=== PATIENT | female | born 1970 | race Caucasian/White ===

== ENCOUNTER → 2016-12-20 | Outpatient (CLI) | payer OTHER ==
[~2016-12-20] MED LIST: CLR10 PO; INSU70IN2 SC; LISI-461 PO; MELO15TA4 PO; METF1TAB53 PO; NRN/600 PO; OMEP40CA PO; OXYB5TAB74 PO; PROM25TA9 PO
--- NOTE | 2016-12-21 06:01 | PAP/PSG TECHNICIAN REPORT ---
[facility] Manager Purchasing Polysomnogram Report Study name: None Report date: 12/21/2016 Study date: 12/20/2016 Referring Physician: Branden Copeland M.D. Name: MIKALA OH Interpreting Physician: Sariah Copeland M.D. Date of : 1970 Manager Purchasing: PATTI Guidry. Sex: Female Age: 46 StudyType: PSG Weight: 311 lbs Height: 46 years, Height 5' 4" Neck Circum: 18 inches BMI: 53.38 Medications: Meloxicam, Tramadol, Insulin, Lisinopril, Omeprazole, Loratadine,Metformin, Gabapentin Patient History 46 yr. old female here for a possible split night sleep study with [id number]. Patient is having gastric bypass surgery. 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 Patients [place] sleepiness scale score is 4/24 Parameters Monitored NPSG: E1-M2, E2-M1, Fp1-M2, Fp2-M1, F3-M2, F4-M2, F4-M1, C3-M2, C4-M2, C4-M1, O1-M2, O2-M2, O2-M1, T3-M2, T4-M1, P3-M2, P4-M1, CHIN1, CHIN2, HR, EKG, Legs, PFLOW, SNOR, FLOW, CFLOW, Tidal Volume, THOR, ABDO, SpO2, PLTH, CPRESS, ETCO2 Wave, ETCO2, pH Sleep Architecture Sleep Stages Time at Lights Off 10:39:14 PM STAGES Time (min.) TST (%) Time at Lights On 5:45:14 AM Wake 64.0 -- Total Recording Time (TRT) 426.00 min. N1 30.0 8 Total Sleep Period (TSP) 400.0 min. N2 217.5 60 Total Sleep Time (TST) 362.0min. N3 37.0 10 Awake Time 64.0 min. REM 77.5 21 Wake after Sleep Onset 38.0 min. Sleep Efficiency (SE) 85 % Sleep Onset Latency (MILTON) 26.0 min. Number of Stage 1 Shifts None Awakenings 13 Stage Changes 75 Number of REM periods 4 REM 77.5 21 REM Latency 60.5 min. NREM 284.5 79 Body Position Analysis Supine Right Left Side Prone Vertical Total Sleep Time (min.) 63.5 231.3 0.0 231.29 99.1 0.0 Total Sleep Time (%) 10% 64% 0% 64 26% N/A% Total Sleep Time REM (min.) 7.5 47.0 0.0 None 23.0 0.0 Total Sleep Time NREM (min.) 28.1 184.3 0.0 None 72.1 0.0 Intermittent Wake (min.) 27.9 32.1 0.0 None 4.0 0.0 Total Sleep Period (%) 10% None None None None None Arousals Myoclonus (PLM) * Events Count Index Events Count Index Spontaneous 14 2 Events Awake (PLMW) 51 47.8 Respiratory 0 0.0 Events Asleep w/ Arousal (PLMA) 4 0.7 PLM 4 1 Events Asleep w/o Arousal (PLMS) 110 18.2 Snoring 11 2 Total Asleep 114 18.9 Total 29 5 Total 165 23 Respiratory Analysis * CA OA MA CH H RERA Total Count 0 0 0 0 25 0 25 Index 0.0 0.0 0.0 0 4.1 0 4.1 Mean Duration 0.0 0.0 0.0 0.00 27.4 0.0 27.4 Longest Duration 0.0 0.0 0.0 0.00 0.0 0.0 40.3 Respiratory Event Summary Total Supine ~Supine Right Left Prone REM NREM Apneas Count 0 0 0 0 N/A 0 0 0 Index 0.0 0 0 0.0 N/A 0 0 0 Hypopneas (4% Desat) Count 25 7 18 15 N/A 3 14 11 Index 4.1 11.8 3 3.9 N/A 1.9 10.8 2.3 Apneas & All Hypopneas Count 25 7 18 15 N/A 3 14 11 Index 4.1 12 3 4 N/A 2 10.8 2.3 Respiratory Events (Account Support Analyst+All Hyp+RERA) Count 25 7 18 15 N/A 3 14 11 Index 4.1 12 3 3.9 N/A 1.9 10.8 2.3 Respiratory Related Arousal Count 0 7 0 0 N/A 0 0 0 Index 0.0 0 0 0 N/A 0 0 0 Snoring Analysis Supine Right Left Prone REM NREM Total Snore duration 42.5 min Snores count 85 1,539 N/A 30 150 1,504 1,654 Snore mean duration 1.5 Sec Snores index 143 399 N/A 19 116.1 317.2 274.1 TST with snoring (%) 11.7% SpO2 Analysis Total REM NREM Awake <50% 0.0 min. 0.0 min. 0.0 min. 0.0 min. 51 - 60% 0.0 min. 0.0 min. 0.0 min. 0.0 min. 61 - 70% 0.0 min. 0.0 min. 0.0 min. 0.0 min. 71 - 80% 0.0 min. 0.0 min. 0.0 min. 0.0 min. 81 - 90% 48.8 min. 18.8 min. 28.0 min. 2.1 min. 91 - 100% 370.3 min. 58.7 min. 256.5 min. 55.0 min. Average 92 92 92 95 Minimum SpO2 83 83 86 88 Desaturation Event Index 6.9 14.7 4.2 9.4 # Desat. Events below 89% 19 10 8 1 Time(%) with Saturation below 89% 0.9 0.6 0.3 0.0 Time(min.) with Saturation below 89% 3.8 2.4 1.3 0.1 Heart Rate Analysis End Tidal CO2 Analysis Min (bpm) Max (bpm) Average (bpm) TSP (mins) % of TSP Awake 80 127 96 Above 55 mmHg 0.0 0.0 NREM 77 110 90 50-55 mmHg 0.0 0.0 REM 77 109 92 45-50 mmHg 52.0 14.4 Overall 77 110 90 40-45 mmHg 161.5 44.6 35-40 mmHg 12.6 3.5 30-35 mmHg 0.9 0.3 Average ETCO2 0.0 Supplemental O2 Values Minimum O2 level: None Value Start Time End Time Manager Purchasing Comments MS. Oh slept in the right, left, supine and prone positions. No cardiac arrhythmia or PLMs noted. No bruxism noted. Snoring was noted and scored as a 2 on a scale of 0 through 5. (0=no snoring, 5=snoring loud enough to be heard through a closed door or down the frias way) MS. Oh awoke to use the restroom once during the night. MS. Oh stated, that was a normal night. The final report will be interpreted and signed by a sleep physician. The completed physician report will then be placed in the patient medical record. Therapy (cm H2O) 0 TIB (min.) 426.0 TST (min.) 362.0 Sleep Onset (min.) 26.0 REM Onset From Sleep (min.) 60.5 Sleep Efficiency % 85 Wakefulness (%) 15 Wakefulness (min.) 64.0 NREM 1 (%) 8 NREM 1 (min.) 30.0 NREM 2 (%) 60 NREM 2 (min.) 217.5 NREM 3 (%) 10 NREM 3 (min.) 37.0 REM (%) 21 REM (min.) 77.5 # Arousals 29 Arousal Index 5 # Snore 1,654 Snore Index 274.1 AHI 4.1 AHI Supine 12 AHI Non-Supine 3 NREM AHI 2.3 REM AHI 10.8 RDI 4.1 # Obstructive Apnea 0 # Central Apnea 0 # Mixed Apnea 0 # Hypopneas 25 RERAs 0 Total Respiratory Events 27 Time Below SpO2 89% (min.) 3.7 Mean NREM SpO2 (%) 92 Mean REM SpO2 (%) 92 Mean Sleep SpO2 (%) 92 Min NREM SpO2 (%) 86 Min REM SpO2 (%) 83 Position Supine (min.) 63.5 Position Non-supine (min.) 326.4 LM Index Sleep 18.9 LM Index NREM 15.4 LM Index REM 31.7 Mean Heart Rate (bpm) 90 Min Heart Rate (bpm) 77
--- NOTE | 2016-12-28 11:03 | POLYSOMNOGRAPH REPORT ---
REFERRING PERSON: Dr. Gasper Copeland. FLOOR CASHIER: Mayuri Foreman. Ms. Oh is a 46-year-old female sent for a possible split night sleep study. She is following with a GI nutrition clinic and is likely going to have gastric bypass surgery. 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 She is sent to the lab to rule out sleep disordered breathing. Her [place] sleepiness scale score on the evening of this study is 4. BMI is 53.38. Following the technical and digital specifications of the [place] [employer] (AASM) a standard diagnostic polysomnogram was performed monitoring EEG, EOG, EMG (chin and leg deviations), oxygen saturation, body position, digital video, respiratory effort and airflow. The sleep Stage and event scoring was based on the AASM Manual for the Scoring of Sleep and Associated Events 2007 edition. Apneas are defined as a drop in the peak thermal sensor excursion by >90% of baseline for at least 10 seconds. Hypopneas were scored using the 4% oxygen desaturation rule (4A-[employer]) and a decrease in the nasal pressure excursions by >30% of baseline for at least 10 seconds. Respiratory effort-related arousal (RERA's) is defined as a sequence of breaths lasting at least 10 seconds characterized by increasing respiratory effort or flattening of the nasal pressure waveform leading to an arousal from sleep when the sequence of breaths does not meet criteria for an apnea or hypopnea. Apnea Hypopnea index (AHI) is defined as the number of apneas and hypopneas occurring in an hour of sleep. Respiratory disturbance index (RDI) is defined as the number of apneas, hypopneas, and RERA's occurring in an hour of sleep. Ms. Oh's total sleep period time was 400 minutes. Total sleep time was 362 minutes. Sleep efficiency was 85%. Latency to sleep onset was 26 minutes with wake after sleep onset of 38 minutes. Total non-REM sleep time was 284.5 minutes. She spent 8% of that time in N1 sleep, 60% in N2 sleep and 10% in N3 sleep. REM latency was 60.5 minutes. Total REM sleep time was 77.5 minutes or 21% of total sleep time. There were 29 cortical arousals from sleep. Eleven of these arousals were due to snoring, 4 due to periodic limb movements of sleep and 14 were spontaneous. There were no central obstructive or mixed apneas on this test. There were 25 hypopneas and no RERA. Apnea-hypopnea index was normal at 4.1. There were 1654 snoring events recorded. Total sleep time with snoring was 11.7%. Mean saturation during sleep was 92% with desaturations to 83%. Saturations were less than 89% for 3.8 minutes of sleep time. There was no cardiac ectopy noted on this study. Heart rates ranged from a low of 77 beats per minute to a high of 110 beats per minute during sleep. End-tidal CO2 was recorded on this test. However, this data was incomplete. IMPRESSION AND PLAN: A 46-year-old female without evidence of sleep disordered breathing, nocturnal hypoxemia, bruxism, parasomnia or clinically significant periodic limb movements of sleep on this test.
== END | disposition home or self-care (01) ==
LOC: C.NEUR 21:00
PROVIDERS: ATTEND Family Medicine
DX: R06.83 Snoring (principal); E66.01 Morbid (severe) obesity due to excess calories; E66.2 Morbid (severe) obesity with alveolar hypoventilation; G47.30 Sleep apnea, unspecified; G47.36 Sleep related hypoventilation in conditions classified elsewhere; G47.63 Sleep related bruxism; G47.50 Parasomnia, unspecified

== ENCOUNTER → 2016-12-23 | Outpatient (CLI) | payer OTHER ==
--- NOTE | 2016-12-23 12:47 | MAMMOGRAPHY REPORT ---
UNILATERAL LEFT DIGITAL DIAGNOSTIC MAMMOGRAM TOMOSYNTHESIS WITH CAD AND TARGETED LEFT ULTRASOUND: 12/23/2016 CLINICAL HISTORY: 46-year-old woman presents with tenderness in the inferior left breast. No defini te palpable mass although she reports her doctor felt a lump on physical exam in that area. No fami ly history of breast cancer. TECHNIQUE: Left breast tomosynthesis in addition to standard 2D mammography was performed. Current mic shoemaker was also evaluated with a Computer Aided Detection (CAD) system. COMPARISON: Comparison is made to exams dated: 08/27/2016 mammogram and 12/23/2016 ultrasound - [facility]. BREAST COMPOSITION: There are scattered areas of fibroglandular density in the left breast. FINDINGS: A triangular skin palpable marker overlies the 6:00 posterior left breast, denoting the te nderness which was pointed out by the patient. There are a few benign rim calcifications in the ant erior left breast. No new suspicious mass, architectural distortion or cluster of microcalcificatio ns is seen. Targeted ultrasound was performed along the inferior left breast from the 5:00 to 7:00 axes, in the area of tenderness pointed out by the patient. Normal fibroglandular tissue is seen without a suspi cious solid or cystic mass. IMPRESSION: ACR BI-RADS CATEGORY 2: BENIGN, TARGETED ULTRASOUND ACR BI-RADS CATEGORY 2: BENIGN There is no suspicious mammographic or sonographic abnormality in the area of tenderness pointed out by the patient, also an area of lump identified by the patient's physician. Overall, there is no m ammographic or targeted sonographic evidence of malignancy. Clinical follow-up is recommended, as b iopsy of a clinically suspicious mass should not be precluded by negative imaging. Otherwise, would recommend return to annual screening mammography schedule. Approximately 10% of breast cancers are not detected with mammography. A negative mammographic repor t should not delay biopsy if a clinically suggestive mass is present. Estelita Mcgill M.D. ay/:12/23/2016 09:33:56 Shuttle Driver: Liat MACHADO(Holly)(Coty), [facility] letter sent: Normal /2 BI-RADS Code: ACR BI-RADS Category 2: Benign Ultrasound BI-RADS: ACR BI-RADS Category 2: Benign
== END | disposition home or self-care (01) ==
LOC: C.MAMM 08:32
PROVIDERS: ATTEND Family Medicine
DX: R92.8 Other abnormal and inconclusive findings on diagnostic imaging of breast (principal)

== ENCOUNTER → 2017-02-17 | Outpatient (CLI) | payer OTHER ==
--- NOTE | 2017-02-17 12:08 | DIAGNOSTIC IMAGING REPORT ---
RIGHT FOOT 3 VIEWS CLINICAL HISTORY: Chronic right foot pain. FINDINGS: 3 weightbearing views of the right foot are compared to study dated 08/11/2016. The skeletal structures are osteopenic. No fracture is seen. Advanced arthritic change is again seen involving the tarsometatarsal articulations. 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 There are large dorsal and plantar calcaneal enthesophytes. An os trigonum and an os navicularis are observed. Cystic degenerative change is present in the cuboid. IMPRESSION: 1. No acute bony abnormality is seen. 2. Pes planus and metatarsus adductus as above with advanced degenerative change at the tarsometatarsal articulations. This is similar in appearance to 08/11/2016 examination. Electronically signed by: Piero Robin M.D. 02/17/2017 12:07 PM Dictated Date/Time: 02/17/2017 12:02 PM
--- NOTE | 2017-02-17 12:13 | DIAGNOSTIC IMAGING REPORT ---
WEIGHTBEARING RADIOGRAPHS OF THE LEFT FOOT CLINICAL HISTORY: Diabetes. Neuropathy. COMPARISON: None FINDINGS: Lateral view demonstrates pes planus deformity. There is no acute fracture or suspicious lesion. There is mild posterior and plantar calcaneal spurring. There is mild arthritis within the left midfoot. No bony destruction is present. There is an old ossicle along the medial malleolus. IMPRESSION: 1. Pes planus deformity. 2. Mild arthritis within the left midfoot. No bony destruction. No acute fracture. Electronically signed by: Prince Lopez M.D. 02/17/2017 12:12 PM Dictated Date/Time: 02/17/2017 12:05 PM
== END | disposition home or self-care (01) ==
LOC: C.RAD 11:08
PROVIDERS: ATTEND Internal Medicine Endocrinology, Diabetes & Metabolism
DX: E11.21 Type 2 diabetes mellitus with diabetic nephropathy (principal); M21.42 Flat foot [pes planus] (acquired), left foot; M21.41 Flat foot [pes planus] (acquired), right foot; M19.071 Primary osteoarthritis, right ankle and foot

== ENCOUNTER → 2017-03-26 | Outpatient (CLI) | payer BC, OTHER ==
[~2017-03-26] MED LIST changes: +DTR/5 PO; -OXYB5TAB74 PO
[2017-03-26 14:53] LABS: ALT/SGPT 18 U/L (12-78); BLOOD UREA NITROGEN 19 mg/dl (7-18); BUN/CREATININE RATIO 22.5 (10-20); CALCIUM 9.2 mg/dl (8.5-10.1); CARBON DIOXIDE 31 mmol/L (21-32); CHLORIDE 104 mmol/L (98-107); CREATININE 0.86 mg/dl (0.60-1.20); GLUCOSE 121 mg/dl (70-99); POTASSIUM 4.3 mmol/L (3.5-5.1); SODIUM 140 mmol/L (136-145)
[2017-03-26 14:57] LABS: CHOLESTEROL 160 mg/dl (0-200); CHOLESTEROL/HDL RATIO 3.7; HDL CHOLESTEROL 43 mg/dl; LDL CHOLESTEROL CALCULATED 88 mg/dl; TRIGLYCERIDES 143 mg/dl (0-150); VERY LOW DENSITY LIPOPROT CALC 29 mg/dl
[2017-03-26 15:04] LABS: ESTIMATED AVERAGE GLUCOSE 180 mg/dl; HA1C FLAG Normal (Normal)
== END | disposition home or self-care (01) ==
LOC: C.LABBC 10:30
PROVIDERS: ATTEND Family Medicine
DX: E11.9 Type 2 diabetes mellitus without complications (principal); E78.00 Pure hypercholesterolemia, unspecified; I10 Essential (primary) hypertension

== ENCOUNTER → 2017-10-20 | Outpatient (CLI) | payer BC ==
[~2017-10-20] MED LIST changes: -PROM25TA9 PO
== END | disposition home or self-care (01) ==
LOC: C.PAPS 08:23
PROVIDERS: ATTEND Family Medicine
DX: Z01.419 Encounter for gynecological examination (general) (routine) without abnormal findings (principal)

== ENCOUNTER → 2017-12-08 | Outpatient (CLI) | payer BC ==
[2017-12-08 13:37] LABS: ALT/SGPT 27 U/L (12-78); BLOOD UREA NITROGEN 17 mg/dl (7-18); CALCIUM 9.2 mg/dl (8.5-10.1); CARBON DIOXIDE 26 mmol/L (21-32); CHOLESTEROL 157 mg/dl (0-200); CREATININE 0.73 mg/dl (0.60-1.20); GLUCOSE 112 mg/dl (70-99); POTASSIUM 4.1 mmol/L (3.5-5.1); SODIUM 138 mmol/L (136-145)
[2017-12-08 13:42] LABS: LDL CHOLESTEROL CALCULATED 91 mg/dl
[2017-12-09 06:13] LABS: HEMOGLOBIN A1C 5.2 % (4.5-5.6)
== END | disposition home or self-care (01) ==
LOC: C.LABBC 09:03
PROVIDERS: ATTEND Family Medicine
DX: E11.9 Type 2 diabetes mellitus without complications (principal); E78.00 Pure hypercholesterolemia, unspecified

== ENCOUNTER → 2018-01-17 | Outpatient (CLI) | payer BC, OTHER ==
[~2018-01-17] MED LIST changes: +MELO-84 PO; -MELO15TA4 PO
--- NOTE | 2018-01-18 07:57 | MAMMOGRAPHY REPORT ---
BILATERAL DIGITAL SCREENING MAMMOGRAM TOMOSYNTHESIS WITH CAD: 01/17/2018 CLINICAL HISTORY: Routine screening. Patient has no complaints. TECHNIQUE: Breast tomosynthesis in addition to standard 2D mammography was performed. Current study was also evaluated with a Computer Aided Detection (CAD) system. COMPARISON: Comparison is made to exams dated: 12/23/2016 mammogram, 12/23/2016 ultrasound, and 6 mammogram - [facility]. BREAST COMPOSITION: There are scattered areas of fibroglandular density in both breasts. FINDINGS: There is decreased subcutaneous fat and slight increased density of the breasts, likely rel ated to weight loss. No suspicious mass, architectural distortion or cluster of suspicious microcalc ifications is seen. IMPRESSION: ACR BI-RADS CATEGORY 1: NEGATIVE There is no mammographic evidence of malignancy. A 1 year screening mammogram is recommended. The pa tient will receive written notification of the results. Approximately 10% of breast cancers are not detected with mammography. A negative mammographic report should not delay biopsy if a clinically suggestive mass is present. Estelita Mcgill M.D. ay/:01/17/2018 18:25:20 Welfare Supervisor: Jasmyne Baumann RT(R)(M), [facility] letter sent: Normal 1/2 BI-RADS Code: ACR BI-RADS Category 1: Negative
== END | disposition home or self-care (01) ==
LOC: C.MAMM 14:01
PROVIDERS: ATTEND Family Medicine
DX: Z12.31 Encounter for screening mammogram for malignant neoplasm of breast (principal)

== ENCOUNTER → 2018-06-16 | Outpatient (CLI) | payer BC | END | disposition home or self-care (01) | LOC: C.LABSPEC 16:56 | PROVIDERS: ATTEND Family Medicine | DX: Z20.2 Contact with and (suspected) exposure to infections with a predominantly sexual mode of transmission (principal) ==